=== PATIENT | female | born 2000 | race Two or more races ===

== ENCOUNTER 2024-06-20 14:18 | Emergency (ER) | payer MEDICAID, OTHER ==
[~2024-06-20] VITALS: Ht 167.6 cm; Wt 120.0 kg
[2024-06-20 16:42] VITALS: BP 146/63; PULSE 86; RESP 18; TEMP 98.2; O2SAT 97
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
[2024-06-20] MEDS: TETANUS-DIPTH-ACEL PERTUSSIS 0.5ML SYR Tdap IM ONE (18:00)
== END 2024-06-20 18:08 | disposition home or self-care (01) ==
LOC: ER 14:18
DX: S61.511A Laceration without foreign body of right wrist, initial encounter (principal); X58.XXXA Exposure to other specified factors, initial encounter; Y93.89 Activity, other specified; Y92.89 Other specified places as the place of occurrence of the external cause; Y99.8 Other external cause status
CPT/HCPCS: 12001; 90471; 90715